=== PATIENT | male | born 2000 | race Two or more races ===

== ENCOUNTER 2024-07-16 03:54 | Emergency (ER) | payer SELFPAY ==
[2024-07-16 03:57] VITALS: BMI 28.1
[2024-07-16 04:09] VITALS: BP 142/97; PULSE 86; RESP 18; TEMP 36.9; O2SAT 96
--- NOTE | 2024-07-16 04:25 | PD.EDRME ---
Rapid Medical Screening Exam RME Arrival date/time: 07/16/24 03:54 24-year-old male past medical history of seizure presents emergency department complaining of uncontrolled muscle cramps that started yesterday. Chief Complaint: General Adult/Misc Complain Time Seen by Provider: 07/16/24 04:21 Vital signs: Vital Signs Temperature 98.4 F 07/16/24 04:09 Pulse Rate 86 07/16/24 04:09 Respiratory Rate 18 07/16/24 04:09 Blood Pressure 142/97 H 07/16/24 04:09 Pulse Oximetry (%) 96 07/16/24 04:09 Oxygen Delivery Method Room Air 07/16/24 04:09 Vital signs reviewed by provider: Yes
--- NOTE | 2024-07-16 09:25 | PC.NURSE ---
pt eloped from ED
== END 2024-07-16 06:45 | disposition left against medical advice (07) ==
PROVIDERS: Emergency Provider Emergency Medicine; PCP Nurse Practitioner Family
DX: R25.2 Cramp and spasm (principal); Z53.29 Procedure and treatment not carried out because of patient's decision for other reasons
CPT/HCPCS: 80053; 80307; 81001; 82550; 83735; 85025; 99281